=== PATIENT | male | born 1975 | race American Indian/Alaskan Native ===

== ENCOUNTER 2018-07-03 14:29 | Emergency (ER) | payer SELFPAY ==
[2018-07-03 16:07] VITALS: BP 117/79
--- NOTE | 2018-07-03 20:16 | Emergency Department Report ---
[facility] Chief Complaint: Eye Problems Stated Complaint: EYES CANT OPEN/PAIN Time Seen by Provider: 07/03/18 20:03 Duration: 2 weeks Side: Bilateral Severity: severe Symptoms: Yes Eye Itching, Yes Eye Redness, Yes Purulent Drainage, No Eye Pain, No Blurred Vision Other History: 42-year-old -[place] male presents to the emergency room for bilateral eye redness and exudate. Patient claims that he's had severe itching matting of the eye lashes and photophobia. Patient reports this isn't going on for about 2 weeks. Patient denies any contact use no glasses. He does admit to drainage matting eyelashes photophobia. Denies any history of allergies no known drug allergies medical history. ED Review of Systems ROS: Stated complaint: EYES CANT OPEN/PAIN Other details as noted in HPI Comment: All other systems reviewed and negative Eyes: eye discharge ED Past Medical Hx - Surgical History Past Surgical History?: No - Social History Smoking Status: Current Some Day Smoker Substance Use Type: Marijuana - Medications Home Medications: Home Medications Medication Instructions Recorded Confirmed Last Taken Type Erythromycin [Erythromycin Ophth 1 applic OU QID 7 Days #2 tube 07/03/18 Unknown Rx Oint] [facility] Exam - Exam General: Vital signs noted. No distress. Alert and acting appropriately. Eye Exam: Both Injection, Both EOMI, Both Mucous Discharge, Both Purulent Discharge, Both Photophobia, Neither Eye Foreign Body, Neither Lid Foreign Body HEENT: No Nasal Congestion, No Pharyngeal Erythema Lungs: Yes Clear Lung Sounds, Yes Good Air Exchange ED Course Vital Signs 07/03/18 15:57 Temperature 98.5 F Pulse Rate 88 Respiratory 18 Rate Blood Pressure 117/79 O2 Sat by Pulse 100 Oximetry Critical care attestation.: If time is entered above; I have spent that time in minutes in the direct care of this critically ill patient, excluding procedure time. ED Disposition Clinical Impression: Acute conjunctivitis, bilateral Qualifiers: Acute conjunctivitis type: unspecified Qualified Code(s): H10.33 - Unspecified acute conjunctivitis, bilateral Disposition: DC-01 TO HOME OR SELFCARE Is pt being admited?: No Does the pt Need Aspirin: No Condition: Stable Instructions: Conjunctivitis (ED) Additional Instructions: Please use eye ointment as prescribed. Please wash her hand prior to and after use of medication. If her symptoms persist or gets worse please follow-up with the primary care provider or cash applications coordinator. Prescriptions: Erythromycin [Erythromycin Ophth Oint] 1 applic OU QID 7 Days #2 tube Forms: Work/School Release Form(ED), Accompanied Note
== END 2018-07-03 20:36 | disposition home or self-care (01) ==
LOC: EDSEX → ED 14:29
DX: H10.33 Unspecified acute conjunctivitis, bilateral (principal); F17.200 Nicotine dependence, unspecified, uncomplicated; F12.10 Cannabis abuse, uncomplicated
CPT/HCPCS: 99282